=== PATIENT | male | born 1985 | race African-American/Black ===

== ENCOUNTER 2017-12-04 00:59 | Emergency (ER) | payer SELFPAY ==
[2017-12-04 01:14] VITALS: BP 136/86; PULSE 76; TEMP 98.3; BMI 17.1
--- NOTE | 2017-12-04 01:38 | PDOC ---
History of Present Illness - General Chief Complaint: Migraine Headache Stated Complaint: SEVERE MIGRAINE Time Seen by Provider: 12/04/17 01:35 - History of Present Illness Initial Comments: 12/04/17 01:37 32 yo M with h/o migraines complains of acute RON. Patient reports worsening, sudden onset, pulsating, bifrontal RON at 20:00. Endorses photophobia, phonophobia, nausea w/out vomiting. RON with radiation to post neck, similiar character, but more severity quality than previous RON's. States that he had RON earlier that resolved spontaneously. H/o migraines occurring 2-3 times weekly, usually resolve spontaneously or with Excedrin. Current RON not alleviated with Excedrin. Denies F/C, neck stiffness, LOC, convulsions, vision changes, vertigo , weakness, sensory disturbance. Denies h/o head trauma. Does not follow with Neurology, but reports he has followed w/ neurology in the past. Received MRI 3 years ago with absent findings. Denies alcohol, tobacco, or caffeine use. Denies CP, SOB, abdominal pain, diarrhea, constipation, urinary complaints. Past History - Past Medical History Allergies/Adverse Reactions: Allergies Allergy/AdvReac Type Severity Reaction Status Date / Time Penicillins Allergy Verified 12/04/17 01:12 Home Medications: Ambulatory Orders Aspirin/Acetaminophen/Caffeine [Excedrin Migraine Caplet] 1 each PO BID Asthma: Yes - Immunization History Immunization Up to Date: Yes - Suicide/Smoking/Psychosocial Hx Smoking Status: No Smoking History: Never smoked Have you smoked in the past 12 months: No Number of Cigarettes Smoked Daily: 0 Information on smoking cessation initiated: No Hx Alcohol Use: No Drug/Substance Use Hx: No Substance Use Type: None Review of Systems - Review of Systems Comments:: 12/04/17 01:37 GENERAL/CONSTITUTIONAL: No fever or chills. No weakness. HEAD, EYES, EARS, NOSE AND THROAT: No change in vision. No ear pain or discharge. No sore throat. CARDIOVASCULAR: No chest pain or shortness of breath RESPIRATORY: No cough, wheezing, or hemoptysis. GASTROINTESTINAL: No nausea, vomiting, diarrhea or constipation. GENITOURINARY: No dysuria, frequency, or change in urination. MUSCULOSKELETAL: No joint or muscle swelling or pain. No neck or back pain. SKIN: No rash NEUROLOGIC: + headache. No vertigo, loss of consciousness, or change in strength/sensation. ENDOCRINE: No increased thirst. No abnormal weight change HEMATOLOGIC/LYMPHATIC: No anemia, easy bleeding, or history of blood clots. ALLERGIC/IMMUNOLOGIC: No hives or skin allergy. *Physical Exam - Vital Signs Last Vital Signs Temp Pulse Resp BP Pulse Ox 98.3 F 76 18 136/86 99 12/04/17 01:13 12/04/17 01:13 12/04/17 01:13 12/04/17 01:13 12/04/17 01:13 - Physical Exam Comments: 12/04/17 01:37 GENERAL: Awake, alert, and fully oriented, in no acute distress HEAD: No signs of trauma, normocephalic, atraumatic EYES: PERRLA, EOMI, sclera anicteric, conjunctiva clear ENT: Hearing grossly normal, nares patent, oropharynx clear without exudates. Moist mucosa NECK: Normal ROM, supple, no lymphadenopathy, JVD, or masses LUNGS: No distress, speaks full sentences, clear to auscultation bilaterally HEART: Regular rate and rhythm, normal S1 and S2, no murmurs, rubs or gallops, peripheral pulses normal and equal bilaterally. EXTREMITIES : Normal inspection, Normal range of motion, no edema. No clubbing or cyanosis. NEUROLOGICAL: Cranial nerves II through XII grossly intact. Normal speech, normal gait, no focal sensorimotor deficits. absent dysmetria on FTN. SKIN: Warm, Dry, normal turgor, no rashes or lesions noted ED Treatment Course - LABORATORY CBC & Chemistry Diagram: 12/04/17 02:20 12/04/17 02:20 Medical Decision Making - Medical Decision Making 12/04/17 01:59 32 yo M with h/o migraines who p/w worsening, sudden onset, pulsating, bifrontal RON at 20:00.+ radiation to post neck. Endorses photophobia, phonophobia, nausea w/out vomiting. Similiar character, but more severity quality than previous RON's. Denies F/C, neck stiffness, LOC, convulsions, vision changes, vertigo, weakness, sensory disturbance. Denies h/o head trauma. Does not follow with Neurology. HDS. Physical exam with absent neruo findings. Although low suspicion will obtain head imaging to r/o SAH vs. mass effect. Pt. AF, non toxic appearing, and absent nuchal findings to suggest meningitis. RON tension type in character vs. migraine w/out Aura. Absent neuro findings. Low suspicion of CVA/TIA. ED Course: 12/04/17 02:01 CBC, CMP Ibruprofen 800 mg, Reglan ,Diphenhydramine 25 mg 12/04/17 03:06 CBC, CMP: Unremarkable 12/04/17 05:42 Patient stable and ready for d/c with return precautions. Advised to f/u with outpt. neurology. *DC/Admit/Observation/Transfer Diagnosis at time of Disposition: Tension type headache Qualifiers: Headache chronicity pattern: acute headache Intractability: not intractable Qualified Code(s): G44.209 - Tension-type headache, unspecified, not intractable - Discharge Dispostion Disposition: HOME Condition at time of disposition: Stable Admit: No - Referrals Referrals: Selvin Caputo MD [Staff Physician] - - Patient Instructions Printed Discharge Instructions: DI for Hormonal and Tension Headaches, Migraine -- Adult Additional Instructions: Please return to the emergency department with any new or worsening symptoms or concerns. Please follow up with your primary care physician within 72 hours. - Post Discharge Activity - Attestations Physician Attestion: 12/04/17 01:37 I attest to the information provided in this note.
[2017-12-04] MEDS ORDERED: METOCLOPRAMIDE HCL INJECTION 10 MG/2 ML VIAL IVPUSH ONE (01:49)
[2017-12-04] MEDS ORDERED: IBUPROFEN 800 MG/8 ML IJ IVPB ONE ×2 (01:49→02:01)
[2017-12-04] MEDS ORDERED: METOCLOPRAMIDE HCL INJECTION 10 MG/2 ML VIAL ONE (02:01)
[2017-12-04 02:24] LABS: BASO % 0.2 % (0-2.0); EOS % 1.4 % (0-4.5); HEMATOCRIT 34.2 % (35.4-49); HEMOGLOBIN 11.1 GM/dL (11.7-16.9); LYMPH % 22.6 % (8-40); MCHC 32.4 g/dl (32.0-35.9); MEAN CELL VOLUME 80.2 fl (80-96); MEAN PLT VOLUME 8.6 fl (7.5-11.1); MONO % 12.4 % (3.8-10.2); NEUT % 63.4 % (42.8-82.8); PLATELET COUNT 193 K/MM3 (134-434); RBC 4.27 M/mm3 (4.00-5.60); RDW 15.9 % (11.9-15.9); WHITE BLOOD COUNT 5.2 K/mm3 (4.0-10.0)
[2017-12-04 02:54] LABS: ALBUMIN 3.9 g/dl (3.4-5.0); ALK PHOS 67 U/L (45-117); ANION GAP 7 (8-16); BILIRUBIN,TOTAL 0.3 mg/dL (0.2-1.0); BLOOD UREA NITROGEN 16 mg/dL (7-18); CALCIUM 8.6 mg/dL (8.5-10.1); CHLORIDE 106 mmol/L (98-107); CO2 29 mmol/L (21-32); GLUCOSE,RANDOM 88 mg/dL (74-106); POTASSIUM 4.4 mmol/L (3.5-5.1); SGOT/AST 8 U/L (15-37); SGPT/ALT 14 U/L (12-78); SODIUM 142 mmol/L (136-145); TOT PROT 7.3 g/dl (6.4-8.2)
--- NOTE | 2017-12-04 03:15 | PDOC ---
Attending Attestation - HPI HPI: 12/04/17 04:31 Patient is a 32 year old male with a significant past medical history of Asthma , who presents to the ED with complaints of migraine that began today at 8pm. Patient reports migraine began while at home and has not shown any signs of subsiding prompting him to come into the ED for further evaluation. He reports experiencing 2 to 3 migraines per week since childhood, stating they usually spontaneously subside after an hour. Patient reports experiencing associated symptoms of photophobia, phonophobia, and nausea. Denies chest pain, Sob. Denies head trauma, change in vision. Denies diarrhea, constipation, dysuria, hematuria. Denies Allergies: Penicillin. Social history: No smoking. No alcohol. No illicit drugs. Surgical history: None PMD: None <Alejandro Bobby - Last Filed: 12/04/17 04:31> - Resident Resident Name: Tirso De La Rosa - ED Attending Attestation I have performed the following: I have examined & evaluated the patient, The case was reviewed & discussed with the resident, I agree w/resident's findings & plan, Exceptions are as noted - Physicial Exam PE: 12/04/17 05:46 *Physical Exam General Appearance: Yes: Appropriately Dressed. No: Apparent Distress, Intoxicated HEENT: positive: EOMI, ROSIE, Normal ENT Inspection, Normal Voice, TMs Normal, Pharynx Normal. negative: Pale Conjunctivae, Photophobia, Scleral Icterus (R), Scleral Icterus (L) Neck: positive: Trachea midline, Normal Thyroid, Supple. negative: Tender, Rigid, Carotid bruit, Stridor, Lymphadenopathy (R), Lymphadenopathy (L), Thyromegaly Respiratory/Chest: positive: Lungs Clear, Normal Breath Sounds. negative: Chest Tender, Respiratory Distress, Accessory Muscle Use, Labored Respiration, RES, Crackles, Rales, Rhonchi, Stridor, Wheezing, Dullness Cardiovascular: positive: Regular Rhythm, Regular Rate, S1, S2. negative: Edema , JVD, Murmur, Bradycardia, Tachycardia Vascular Pulses: Dorsalis-Pedis (R): 2+, Doralis-Pedis (L): 2+ Gastrointestinal/Abdominal: positive: Normal Bowel Sounds, Flat, Soft. negative : Tender, Organomegaly, Pulsatile Mass, Increased Bowel Sounds, Decreased BS, Distended, Guarding, Rebound, Hernia, Hepatomegaly, Spleenomegaly Lymphatic: negative: Adenopathy, Tenderness Musculoskeletal: positive: Normal Inspection. negative: CVA Tenderness, Decreased Range of Motion Extremity: positive: Normal Capillary Refill, Normal Inspection, Normal Range of Motion, Pelvis Stable. negative: Tender, Pedal Edema, Swelling, Erythema Integumentary: positive: Normal Color, Dry, Warm. 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 negative: EOM Palsy, Facial Droop, Sensory Deficit - Medical Decision Making 12/04/17 05:47 Pt treated and released <Narciso Hall - Last Filed: 12/04/17 05:47>
[2017-12-04] MEDS ORDERED: SODIUM CHLORIDE 1,000 ML IV STA (03:16)
== END 2017-12-04 06:01 | disposition home or self-care (01) ==
LOC: JER 00:59
PROC: 3E033GC Introduction of Other Therapeutic Substance into Peripheral Vein, Percutaneous Approach (ICD-10-PCS; principal; 2017-12-04)
PROC: 3E0337Z Introduction of Electrolytic and Water Balance Substance into Peripheral Vein, Percutaneous Approach (ICD-10-PCS; 2017-12-04)
DX: G44.209 Tension-type headache, unspecified, not intractable (principal); J45.909 Unspecified asthma, uncomplicated
CPT/HCPCS: 36415; 80053; 85025; 99281-25; J7030

== ENCOUNTER 2019-03-28 11:06 | Emergency (ER) | payer OTHER ==
[2019-03-28 11:25] VITALS: BP 119/74; PULSE 85; TEMP 98.9; BMI 17.2
--- NOTE | 2019-03-28 11:40 | PDOC ---
History of Present Illness - General Chief Complaint: Pain Stated Complaint: RT POINTER SWELLING Time Seen by Provider: 03/28/19 11:29 History Source: Patient - History of Present Illness Timing/Duration: reports: other Location: reports: hands Past History - Past Medical History Allergies/Adverse Reactions: Allergies Allergy/AdvReac Type Severity Reaction Status Date / Time Penicillins Allergy Verified 03/28/19 11:22 Home Medications: Ambulatory Orders Aspirin/Acetaminophen/Caffeine [Excedrin Migraine Caplet] 1 each PO BID Clindamycin [Cleocin -] 300 mg PO Q6HPO #28 capsule 03/28/19 Asthma: Yes COPD: No - Immunization History Immunization Up to Date: Yes - Suicide/Smoking/Psychosocial Hx Smoking Status: No Smoking History: Never smoked Have you smoked in the past 12 months: No Number of Cigarettes Smoked Daily: 0 Hx Alcohol Use: No Drug/Substance Use Hx: No Substance Use Type: None Review of Systems - Review of Systems Constitutional: No: Chills, Fever *Physical Exam - Vital Signs Last Vital Signs Temp Pulse Resp BP Pulse Ox 98.9 F 85 18 119/74 99 03/28/19 11:22 03/28/19 11:22 03/28/19 11:22 03/28/19 11:22 03/28/19 11:22 - Physical Exam General Appearance: Yes: Appropriately Dressed. No: Apparent Distress HEENT: positive: Normal Voice Neck: positive: Supple Respiratory/Chest: negative: Respiratory Distress Extremity: positive: Other (minimal swelling w/ ttp to paronychia of R index, no induration, pus, erythema) Integumentary: positive: Dry, Warm Neurologic: positive: Fully Oriented, Alert, Normal Mood/Affect Medical Decision Making - Medical Decision Making 03/28/19 11:58 33 to-year-old male, no significant history, here with intermittent pain to R index 2 months and noticed some swelling several days ago. Suspect that it might be 2/2 and ingrown nail, but has since used nail clipper to remove portion of nail. No fever or chills see exam Early paronychia, no e/o felon No induration to I&D -d/c with warm soaks and abx -wound check in 2 days *DC/Admit/Observation/Transfer Diagnosis at time of Disposition: Paronychia - Discharge Dispostion Disposition: HOME Condition at time of disposition: Good - Prescriptions Prescriptions: Clindamycin [Cleocin -] 300 mg PO Q6HPO #28 capsule - Referrals - Patient Instructions Printed Discharge Instructions: DI for Paronychia Additional Instructions: You have an early nail fold infection that did not need to be drained today ass there is no pus. Please take antibiotics as prescribed and apply warm soaks 3- 4 times a day for 15 minutes each time. Please return to ER in 2 days for wound check - Post Discharge Activity Forms/Work/School Notes: Back to Work
== END 2019-03-28 11:51 | disposition home or self-care (01) ==
LOC: JERFT 11:06
DX: L03.011 Cellulitis of right finger (principal)
CPT/HCPCS: 99281-25

== ENCOUNTER 2019-06-12 11:20 | Emergency (ER) | payer OTHER ==
[2019-06-12 11:28] VITALS: BP 130/86; PULSE 75; TEMP 98.8; BMI 16.9
[2019-06-12] MEDS ORDERED: ACETAMINOPHEN 500 MG TABLET (FP) PO ONE (12:49)
[2019-06-12] MEDS ORDERED: IBUPROFEN 600 MG TABLET (FP) PO ONE ×2 (12:49→13:04)
--- NOTE | 2019-06-12 12:56 | PDOC ---
History of Present Illness - General Chief Complaint: Injury Stated Complaint: R THUMB INJURY Time Seen by Provider: 06/12/19 12:19 - History of Present Illness Initial Comments: 06/12/19 12:49 34 y/o M with a PMH of migraines. Presents for evaluation of R thumb pain after closing a car door on his thumb last night Tetanus not UTD Past History - Past Medical History Allergies/Adverse Reactions: Allergies Allergy/AdvReac Type Severity Reaction Status Date / Time Penicillins Allergy Verified 06/12/19 11:28 Home Medications: Ambulatory Orders Aspirin/Acetaminophen/Caffeine [Excedrin Migraine Caplet] 1 each PO BID Clindamycin [Cleocin -] 300 mg PO Q6HPO #28 capsule 03/28/19 Asthma: Yes COPD: No - Immunization History Immunization Up to Date: Yes - Psycho Social/Smoking Cessation Hx Smoking Status: No Smoking History: Never smoked Have you smoked in the past 12 months: No Number of Cigarettes Smoked Daily: 0 Hx Alcohol Use: No Drug/Substance Use Hx: No Substance Use Type: None Review of Systems - Review of Systems Musculoskeletal: Yes: See HPI *Physical Exam - Vital Signs Last Vital Signs Temp Pulse Resp BP Pulse Ox 98.8 F 75 18 130/86 99 06/12/19 11:25 06/12/19 11:25 06/12/19 11:25 06/12/19 11:25 06/12/19 11:25 - Physical Exam Comments: 06/12/19 12:51 There is a subungunal hematoma about 25% of the proximal portions of the nail bed. Flexion and extension of the IPJ works and there are no gross sensory or motor deficits NIVD. ED Treatment Course - RADIOLOGY Radiology Studies Ordered: Category Date Time Status FINGER(S) RIGHT [RAD] Stat Radiology 06/12/19 12:20 Completed Medical Decision Making - Medical Decision Making 06/12/19 12:53 No fx on x-ray discussed the use of Tylenol and Motrin for pain control. Tetanus updated. F/U with hand. Also discussed potential loss of nail Discharge - Discharge Information Problems reviewed: Yes Clinical Impression/Diagnosis: Subungual contusion of finger Condition: Stable Disposition: HOME - Admission No - Follow up/Referral Referrals: Julia Grider MD [Primary Care Provider] - Austin Diop MD [Staff Physician] - - Patient Discharge Instructions Additional Instructions: Return to the emergency room for worsening symptoms. Tylenol and Motrin for pain as directed. Without fail, please follow up with hand surgery in 1-2 days for further evaluation and treatment options. - Post Discharge Activity
[2019-06-12] MEDS ORDERED: DIPHTH,PERTUSS(ACELL),TET 0.5 ML DISP.SYRIN IM ONE ×2 (13:03→13:04)
[2019-06-12] MEDS ORDERED: ACETAMINOPHEN 325 MG TABLET (FP) ONE (13:04)
== END 2019-06-12 13:18 | disposition home or self-care (01) ==
LOC: JERFT 11:20
PROC: 3E0234Z Introduction of Serum, Toxoid and Vaccine into Muscle, Percutaneous Approach (ICD-10-PCS; principal; 2019-06-12)
DX: S60.111A Contusion of right thumb with damage to nail, initial encounter (principal); V48.4XXA Person boarding or alighting a car injured in noncollision transport accident, initial encounter; Y92.410 Unspecified street and highway as the place of occurrence of the external cause; Y93.89 Activity, other specified; Y99.8 Other external cause status
CPT/HCPCS: 73140-TC-RT-FY; 90471; 90715; 99281-25

== ENCOUNTER 2021-01-14 11:19 | Emergency (ER) | payer OTHER ==
[2021-01-14 11:28] VITALS: BP 135/89; PULSE 83; TEMP 98.1; BMI 17.1
[2021-01-14] MEDS ORDERED: KETOROLAC TROMETHAMINE 30 MG/1 ML VIAL IM ONE (12:38)
[2021-01-14] MEDS ORDERED: LIDOCAINE 5% TOPICAL PATCH TP ONE (12:38)
[2021-01-14] MEDS ORDERED: LIDOCAINE 5% TOPICAL PATCH ONE (12:39)
[2021-01-14] MEDS ORDERED: KETOROLAC TROMETHAMINE 30 MG/1 ML VIAL ONE (12:40)
== END 2021-01-14 14:03 | disposition home or self-care (01) ==
LOC: JERFT 11:19
PROC: 3E0233Z Introduction of Anti-inflammatory into Muscle, Percutaneous Approach (ICD-10-PCS; principal; 2021-01-14)
DX: M54.5 Low back pain (principal)
CPT/HCPCS: 72100-TC-FY; 99284-25